=== PATIENT | female | born 1990 | race Caucasian/White ===

== ENCOUNTER 2017-11-22 16:20 | Emergency (ER) | payer MEDICAID ==
[2017-11-22 16:26] VITALS: BP 141/83
--- NOTE | 2017-11-22 17:03 | EDPHY ---
H & P Smoking Status: Never smoked Time Seen by Provider: 11/22/17 17:02 HPI/ROS: CHIEF COMPLAINT: Concern for UTI HISTORY OF PRESENT ILLNESS: The patient is here with burning with urination and frequency of urination for the last 24 hr. She denies any fever or chills or back pain. She denies . She has tried no medication to alleviate her pain. ROS As detailed in HPI (Ryan Mak) Physical Exam: General: Alert and oriented. Nontoxic appearing. No acute distress HEENT: Pupils PERRLA. No oral lesions. Cardiopulmonary: Regular rate and rhythm. No lower extremity edema Skin: [place] warm and dry. No lesions. Muscle skeletal: Moving all 4 extremities. Equal strength in upper extremities and lower extremities. Ambulatory. (Ryan Mak) Constitutional: Initial Vital Signs Temperature (C) 36.5 C 11/22/17 16:22 Heart Rate 96 11/22/17 16:22 Respiratory Rate 16 11/22/17 16:22 Blood Pressure 141/83 H 11/22/17 16:22 O2 Sat (%) 96 11/22/17 16:22 O2 Delivery Mode Room Air Allergies/Adverse Reactions: azithromycin Allergy (Verified 11/22/17 16:22) Home Medications: Medication Instructions Recorded Cephalexin [Keflex (*)] 500 mg PO TID 7 Days #21 cap 11/22/17 ED Course/Re-evaluation: I did not see this patient while she was in the emergency department. However her care was discussed with the PA while the patient was in the department. I agree with treatment plan and management (Servando Wood) - Data Points Medications Given: Discontinued Medications Cephalexin HCl (Keflex) 500 mg PO EDNOW ONE PRN Reason: Protocol Stop: 11/22/17 17:26 Last Admin: 11/22/17 18:00 Dose: 500 mg Departure - Departure Disposition: Home, Routine, Self-Care Clinical Impression: UTI (urinary tract infection) Condition: Good Instructions: Urinary Tract Infection in Women (ED) Additional Instructions: Please follow up with your primary care physician in 2-3 days if symptoms are not improving. Return to the ER for developed fever, flank pain, nausea vomiting or other worrisome symptoms. Referrals: NONE *PRIMARY CARE P,. [Primary Care Provider] - As per Instructions [facility],. [Clinic] - As per Instructions Prescriptions: Cephalexin [Keflex (*)] 500 mg PO TID 7 Days #21 cap
[2017-11-22] MEDS ORDERED: CEPHALEXIN 500 MG CAP PO ONE (17:25)
== END 2017-11-22 18:10 | disposition home or self-care (01) ==
DX: N39.0 Urinary tract infection, site not specified (principal)